=== PATIENT | female | born 1955 | race Caucasian/White ===

== ENCOUNTER 2019-08-27 15:58 | Observation (INO) ==
[2019-08-27 16:34] LABS: Basophils # (auto) 0.02 K/uL (0-0.2); Basophils % (auto) 0.4 %; Eosinophils # (auto) 0.12 K/uL (0-0.5); Eosinophils % (auto) 2.1 %; Hematocrit (blood only) 37.8 % (37-47); Hemoglobin 11.9 g/dL (12.0-16.0); Immature Granulocytes # (auto) 0.01 K/uL (0.00-0.02); Immature Granulocytes % (auto) 0.2 %; Lymphocytes # (auto) 1.08 K/uL (1.2-3.4); Lymphocytes % (auto) 18.9 %; Mean Corpuscular Hemoglobin 25.9 pg (25-34); Mean Corpuscular Hgb Conc 31.5 g/dL (32-36); Mean Corpuscular Volume 82.4 fL (80-100); Mean Platelet Volume 10.7 fL (7.4-10.4); Monocytes # (auto) 0.53 K/uL (0.11-0.59); Monocytes % (auto) 9.3 %; Neutrophils # (auto) 3.94 K/uL (1.4-6.5); Neutrophils % (auto) 69.1 %; Platelet Count 160 K/uL (130-400); RDW Coefficient of Variation 17.5 % (11.5-14.5); RDW Standard Deviation 52.1 fL (36.4-46.3); Red Blood Count 4.59 M/uL (4.2-5.4)
[2019-08-27 16:58] LABS: Alanine Aminotransferase 16 U/L (12-78); Albumin Level 3.6 gm/dl (3.4-5.0); Aspartate Aminotransferase 21 U/L (15-37); BUN Creatinine Ratio 22.3 (10-20); Bilirubin Direct 0.3 mg/dl (0-0.2); Blood Urea Nitrogen 25 mg/dl (7-18); Calcium 9.2 mg/dl (8.5-10.1); Carbon Dioxide 30 mmol/L (21-32); Chloride 101 mmol/L (98-107); Creatinine Clr Calc Pharmacy 66.7 ml/min; Est GFR (African American) 60.1; Est GFR (Non-African American) 51.9; Glucose 164 mg/dl (70-99); Lipase 65 U/L (73-393); Magnesium 2.2 mg/dl (1.8-2.4); Potassium 3.3 mmol/L (3.5-5.1); Sodium 138 mmol/L (136-145)
--- NOTE | 2019-08-27 17:06 | XRay Report ---
XR chest 1V portable HISTORY: 64 years-old Female Chest Pain acute atypical chest pain COMPARISON: None available TECHNIQUE: Portable AP view of the chest FINDINGS: Prior median sternotomy. Cardiac silhouette is enlarged. Coronary arterial stent is noted. Pulmonary vascular congestion without overt pulmonary edema. Calcified plaque of the thoracic aortic arch. No p neumothorax, large pleural effusion or focal airspace consolidation. Degenerative changes of the shou lders and spine. IMPRESSION: Cardiomegaly with pulmonary vascular congestion. The above report was generated using voice recognition software. It may contain grammatical, syntax o r spelling errors. Electronically signed by: Colin Neville M.D. 08/27/2019 5:04 PM
[2019-08-27 17:07] LABS: Albumin Globulin Ratio 0.9 (0.9-2); Alkaline Phosphatase 83 U/L (45-117); Bilirubin,Total 0.9 mg/dl (0.2-1); Globulin 4.2 gm/dl (2.5-4.0); Phosphorus 4.7 mg/dl (2.5-4.9); Total Protein 7.8 gm/dl (6.4-8.2); Troponin I < 0.015 ng/ml (0-0.045)
[2019-08-27] MEDS ORDERED: SODIUM CHLORIDE 0.9% 500 ML IV ONE (17:19)
[2019-08-27] MEDS ORDERED: POTASSIUM CHLORIDE 20 MEQ TABCR PO STA (17:20)
[2019-08-27] MEDS ORDERED: ALBUT/IPRATROP 3MG/0.5MG NEB 3 ML VIAL NEB STA (19:03)
--- NOTE | 2019-08-27 19:04 | Emergency Department Note ---
Entered by Alaina Ng acting as a scribe for Sae Beckett MD History of Present Illness General Chief complaint: Shortness of Breath/Dyspnea Stated complaint: DIZZINESS Time Seen by Provider: 08/27/19 16:14 Source: patient History of Present Illness Onset (ago): week(s) (1) Location: chest Pain Consistency: + other (worsening) Quality: + other (shortness of breath) Associated symptoms: + weakness and + other (lightheadedness) The patient is a 64 year old female who presents to the Emergency Room with complaints of worsening shortness of breath beginning one week ago. The patient states she took a bus trip to [place] this past week, and states the shortness of breath was worsened during the trip although it began prior to leaving. She states the bus stopped every 2-3 hours and she would get off each time. EMS reports lightheadedness beginning yesterday and swelling in her legs for the past two weeks. The patient reports an episode of lightheadedness and weakness occurring just prior to arrival. She reports a history of diabetes and notes her sugar was 99 during the episode. The patient states she took 25 units of insulin this morning with breakfast. She notes she then took 7 units with a candy bar about 2.5 hours before the episode. She denies knowing what her sugar level was before taking either of the insulin doses. The patient notes she has been drinking less than normal. The patient reports a history of a-fib. She states she is on Xarelto and Plavix. Home Medications Home Medications Medication Instructions Recorded Confirmed Type amlodipine 5 mg PO DAILY 08/27/19 08/27/19 History aspirin [Aspir-81] 81 mg PO DAILY 08/27/19 08/27/19 History calcium carbonate [Calcium 600] 600 mg PO DAILY 08/27/19 08/27/19 History cholecalciferol (vitamin D3) 2,000 unit PO DAILY 08/27/19 08/27/19 History duloxetine 60 mg PO DAILY 08/27/19 08/27/19 History furosemide 40 mg PO DAILY 08/27/19 08/27/19 History insulin aspart U-100 [Novolog 0 unit CONTINUOUS SUBCUTANEOUS 08/27/19 08/27/19 History U-100 Insulin aspart] INFUSION CONT irbesartan 300 mg PO DAILY 08/27/19 08/27/19 History isosorbide mononitrate 30 mg PO QAM 08/27/19 08/27/19 History metoprolol succinate 75 mg PO DAILY 08/27/19 08/27/19 History pantoprazole 40 mg PO DAILY 08/27/19 08/27/19 History potassium chloride [Klor-Con M10] 10 meq PO DAILY 08/27/19 08/27/19 History rivaroxaban [Xarelto] 20 mg PO DAILY 08/27/19 08/27/19 History rosuvastatin 40 mg PO DAILY 08/27/19 08/27/19 History vitamin [id number] acid 1,500 mcg PO DAILY 08/27/19 08/27/19 History Allergies Allergy/AdvReac Type Severity Reaction Status Date / Time Sulfa (Sulfonamide Allergy Unknown Unverified 08/27/19 18:25 Antibiotics) Past Med/Surg History Medical History A-fib Surgical History No pertinent past surgical history Family History Other No pertinent family history Social History Preferred Language: Persian Beliefs That Will Affect Care: None Current Living Situation: Alone Feels Safe at Home: Yes Safety Concerns: Feels Safe At This Time Smoking Status: Never smoker Hx Alcohol Use: No Hx Substance Use: No Review of Systems See HPI for pertinent positives & negatives. and A total of 10 systems reviewed and were otherwise negative Physical Exam Vital Signs Vital Signs - 24 hr 08/27/19 15:58 08/27/19 16:04 08/27/19 16:12 Temperature 36.4 C L Temperature Source Oral Sepsis Recent Fever Within 48 Hours No Sepsis New/Unexplained Change in Mental Status No Sepsis Action Taken by Nursing No Action Required Pulse Rate 72 70 72 Pulse Rate [Right Finger] Pulse Rate from SpO2 Sensor 70 Pulse Rhythm Regular Regular Respiratory Rate 21 20 21 Respiratory Effort / Characteristics SOB on Exertion Respiratory Depth Normal Respiratory Pattern Regular Blood Pressure 141/76 H 141/76 H Blood Pressure Mean 97 97 Pulse Oximetry 95 95 95 Oxygen Delivery Method Room Air Room Air Room Air 08/27/19 16:38 08/27/19 17:27 08/27/19 17:30 Temperature Temperature Source Sepsis Recent Fever Within 48 Hours Sepsis New/Unexplained Change in Mental Status Sepsis Action Taken by Nursing Pulse Rate 67 69 Pulse Rate [Right Finger] Pulse Rate from SpO2 Sensor 68 67 Pulse Rhythm Respiratory Rate 23 21 Respiratory Effort / Characteristics Respiratory Depth Respiratory Pattern Blood Pressure 127/74 136/80 Blood Pressure Mean 91 98 Pulse Oximetry 95 97 98 Oxygen Delivery Method Room Air Room Air Room Air 08/27/19 18:00 08/27/19 18:30 08/27/19 19:00 Temperature Temperature Source Sepsis Recent Fever Within 48 Hours Sepsis New/Unexplained Change in Mental Status Sepsis Action Taken by Nursing Pulse Rate 69 67 69 Pulse Rate [Right Finger] Pulse Rate from SpO2 Sensor 70 67 69 Pulse Rhythm Respiratory Rate 19 18 19 Respiratory Effort / Characteristics Respiratory Depth Respiratory Pattern Blood Pressure 139/88 151/108 H 153/98 H Blood Pressure Mean 105 122 116 Pulse Oximetry 98 97 97 Oxygen Delivery Method Room Air Room Air Room Air 08/27/19 19:19 Temperature Temperature Source Sepsis Recent Fever Within 48 Hours Sepsis New/Unexplained Change in Mental Status Sepsis Action Taken by Nursing Pulse Rate Pulse Rate [Right Finger] 70 Pulse Rate from SpO2 Sensor Pulse Rhythm Respiratory Rate 15 Respiratory Effort / Characteristics Non-Labored Spontaneous Respiratory Depth Respiratory Pattern Blood Pressure Blood Pressure Mean Pulse Oximetry 96 Oxygen Delivery Method Room Air GENERAL: Awake, alert, fatigued-appearing, in no distress. BMI: 39.9kg/m^2 HENT: Normocephalic, atraumatic. Oropharynx with dry mucous membranes and otherwise unremarkable. EYES: Normal conjunctiva. Sclera non-icteric. EOMI. No nystamgus. PEARRL. NECK: Supple. No nuchal rigidity. FROM. No JVD. RESPIRATORY: CTAB. CARDIAC: Regular rate, normal rhythm. Extremities warm and well perfused. Pulses equal. 3/6 systolic murmur. ABDOMEN: Soft, non-distended. No tenderness to palpation. No rebound or guarding. No masses. RECTAL: Deferred. MUSCULOSKELETAL: Chest examination reveals no tenderness. The back is symmetrical on inspection without obvious abnormality. There is no CVA tenderness to palpation. No joint edema. LOWER EXTREMITIES: Calves are equal size bilaterally and non-tender. 1+ bilateral lower extremity edema. No discoloration. NEURO: Normal sensorium. No sensory or motor deficits noted. SKIN: No rash or jaundice noted. Course 1635: Past medical records reviewed. The patient was evaluated in room B10. A complete history and physical exam was performed. 1830: Upon reevaluation, the patient was feeling better. The patient is going to try walking and will be discharged home if it goes well. 1850: Upon reevaluation, the patient's oxygen level decreased while on her ambulatory track. The patient will need to be further evaluated in the hospital. 1905: Upon reevaluation, I discussed findings and results with the patient. She verbalized agreement of the treatment plan. [facility] The patient will be evaluated for further management and care. Administered Medications Discontinued Medications Albuterol (Duoneb) 3 ml NEB NOW STA Stop: 08/27/19 19:04 Last Admin: 08/27/19 19:19 Dose: 3 ml Documented by: [id number] Sodium Chloride (Nss) 500 mls @ 999 mls/hr IV .Q31M ONE Stop: 08/27/19 17:49 Last Infusion: 08/27/19 18:19 Dose: 0 mls/hr Documented by: [id number] Admin: 08/27/19 17:26 Dose: 999 mls/hr Documented by: [id number] Furosemide 40 mg/ Syringe 4 mls @ 4 mls/min IV 2115 ONE Stop: 08/27/19 21:16 Last Admin: 08/27/19 21:32 Dose: 4 mls/min Documented by: [id number] Potassium Chloride (Klor-Con M20) 20 meq PO NOW STA Stop: 08/27/19 17:21 Last Admin: 08/27/19 17:24 Dose: 20 meq Documented by: [id number] Potassium Chloride (Klor-Con M20) 20 meq PO 2100 ONE Stop: 08/27/19 21:01 Last Admin: 08/27/19 21:32 Dose: 20 meq Documented by: [id number] Medical Decision Making Differential Diagnosis Differential Diagnosis includes but is not limited to dehydration, stroke, anemia, hypoglycemia, hyponatremia, hypernatremia, urinary tract infection, pneumonia, bronchitis, sepsis, gastroenteritis, additional abdominal pathology, metabolic abnormalities and infections. Medical Records Attestation: I reviewed the patient's medical records. Home Medications Current Medication List: was personally reviewed by me Laboratory Data Attestation: I reviewed the patient's lab results. Result diagrams: 08/27/19 16:21 08/27/19 16:21 Lab Results 08/27/19 08/27/19 08/27/19 Range/Units 16:21 16:21 16:21 WBC 5.70 (4.8-10.8) K/uL RBC 4.59 (4.2-5.4) M/uL Hgb 11.9 L (12.0-16.0) g/dL Hct 37.8 (37-47) % MCV 82.4 (80-100) fL MCH 25.9 (25-34) pg MCHC 31.5 L (32-36) g/dL RDW Std Deviation 52.1 H (36.4-46.3) fL RDW Coeff of Lazara 17.5 H (11.5-14.5) % Plt Count 160 (130-400) K/uL MPV 10.7 H (7.4-10.4) fL Immature Gran % (Auto) 0.2 % Neut % (Auto) 69.1 % Lymph % (Auto) 18.9 % [place] % (Auto) 9.3 % Eos % (Auto) 2.1 % Baso % (Auto) 0.4 % Immature Gran # (Auto) 0.01 (0.00-0.02) K/uL Neut # (Auto) 3.94 (1.4-6.5) K/uL Lymph # (Auto) 1.08 L (1.2-3.4) K/uL [place] # (Auto) 0.53 (0.11-0.59) K/uL Eos # (Auto) 0.12 (0-0.5) K/uL Baso # (Auto) 0.02 (0-0.2) K/uL D-Dimer 250 (0-500) ug/L FEU Sodium 138 (136-145) mmol/L Potassium 3.3 L (3.5-5.1) mmol/L Chloride 101 (98-107) mmol/L Carbon Dioxide 30 (21-32) mmol/L Anion Gap 7.0 (3-11) BUN 25 H (7-18) mg/dl Creatinine 1.12 (0.6-1.2) mg/dl Est Cr Clr Drug Dosing 66.7 ml/min Est GFR ( Amer) 60.1 Est GFR (Non-Af Amer) 51.9 BUN/Creatinine Ratio 22.3 H (10-20) Glucose 164 H (70-99) mg/dl Calcium 9.2 (8.5-10.1) mg/dl Phosphorus 4.7 (2.5-4.9) mg/dl Magnesium 2.2 (1.8-2.4) mg/dl Total Bilirubin 0.9 (0.2-1) mg/dl Direct Bilirubin 0.3 H (0-0.2) mg/dl AST 21 (15-37) U/L ALT 16 (12-78) U/L Alkaline Phosphatase 83 (45-117) U/L Troponin I < 0.015 (0-0.045) ng/ml Total Protein 7.8 (6.4-8.2) gm/dl Albumin 3.6 (3.4-5.0) gm/dl Globulin 4.2 H (2.5-4.0) gm/dl Albumin/Globulin Ratio 0.9 (0.9-2) Lipase 65 L (73-393) U/L TSH 2.800 (0.300-4.500) uIu/ml Imaging Data Radiologist's Impression: Radiology results as stated below per my review and the radiologist's interpretation: XR chest 1V portable HISTORY: 64 years-old Female Chest Pain acute atypical chest pain COMPARISON: None available TECHNIQUE: Portable AP view of the chest FINDINGS: Prior median sternotomy. Cardiac silhouette is enlarged. Coronary arterial stent is noted. Pulmonary vascular congestion without overt pulmonary edema. Calcified plaque of the thoracic aortic arch. No pneumothorax, large pleural effusion or focal airspace consolidation. Degenerative changes of the shoulders and spine. IMPRESSION: Cardiomegaly with pulmonary vascular congestion. The above report was generated using voice recognition software. It may contain grammatical, syntax or spelling errors. Electronically signed by: Colin Neville M.D. 08/27/2019 5:04 PM ECG Data Attestation: I personally reviewed and interpreted this ECG as follows: Indication: + SOB/dyspnea Rate (beats per minute): 69 Rhythm: + atrial flutter ECG Intervals/blocks: + Incomplete right bundle branch block ECG ST segments: + ST depression (no) ECG Findings: + PACs (no), + PVCs (no) and + Other (no ST elevation, QTC 505) Blood Pressure Blood Pressure Findings: Elevated blood pressure Blood Pressure Disposition: further management by hospitalist DISHA Lassiter The patient is a pleasant 64-year-old woman with a past medical history of a flutter on Xarelto, history of peripheral edema on Lasix, insulin-dependent diabetes who presents emergency department after having near syncopal episode with associated shortness of breath in the setting of having worsening shortness of breath over the past week while undertaking a trip from [place] to [place] with her sister per hpi. On arrival the patient is fatigued appearing but no acute distress, afebrile stable vital signs. Patient is neurologically intact. She has 1+ bilateral lower extremity edema. She has a 3 out of 6 systolic murmur that radiates to bilateral carotids. EKG demonstrates a flutter without overt acute ischemia. Chest x-ray with venous congestion without overt pulmonary edema likely related to patient's aflutter. WBC and platelets within normal limits. H/H 11.9/37.8 without prior values for comparison. Potassium 3.3 with repletion provided. Creatinine within normal limits however BUN/creatinine> 20 suggesting component of dehydration given the patient reports not drinking much during the last couple of days during her trip. Glucose is 164. Chemistry without acidosis. Troponin negative/undetectable. Patient was feeling improved after 500 cc of normal saline. The patient reports she is not checking her sugars during her trip but administering her insulin as usual. Certainly this patient's symptoms could be multifactorial with a component of transient hypoglycemia when she ate her candy and gave herself insulin without having lunch. Additionally there may be a slight component of dehydration. However upon ambulatory trial, the patient did become significantly short of breath and desaturated to the 80s. Thus, reasonable to admit the patient for further management given her comorbidities. Patient agreeable with admission. Case was discussed with Dr. Almonte, [facility] hospitalist, who will evaluate the patient for admission. Impression & Plan Near syncope, Dyspnea on exertion, Insulin dependent diabetes mellitus, History of hypertension Discharge Plan Visit Data *Final* Discharge Date/Time: 08/27/19 20:19 Chief Complaint: Shortness of Breath/Dyspnea Stated Complaint: DIZZINESS ED Provider: Sae Beckett Discharge Problem: Near syncope, Dyspnea on exertion, Insulin dependent diabetes mellitus, History of hypertension Patient Disposition: Admitted As Inpatient Discharge Instructions Interventions: ED Discharge Assessment Last Done: 08/27/19 20:19 The scribe's documentation has been prepared under my direction and personally reviewed by me in its entirety. I confirm that the note above accurately reflects all work, treatment, procedures, and medical decision making performed by me.
[2019-08-27] MEDS ORDERED: PHARMACY GLYCEMIC MGMT CONSULT STA (20:12)
[2019-08-27 20:31] LABS: D Dimer 250 ug/L FEU (0-500)
[2019-08-27] MEDS ORDERED: ACETAMINOPHEN 325 MG TAB PO PRN (20:45)
[2019-08-27] MEDS ORDERED: NITROGLYCERIN SL 0.4 MG/TAB TAB SL PRN (20:45)
[2019-08-27] MEDS ORDERED: ONDANSETRON INJ 2 MG/ML 2 ML VIAL IV PRN (20:45)
[2019-08-27] MEDS ORDERED: FUROSEMIDE 40 MG/4 ML VIAL IV STA (20:45)
[2019-08-27] MEDS ORDERED: PHARMACY GLYCEMIC MGMT CONSULT PRN (20:52)
[2019-08-27] MEDS ORDERED: GLUCAGON FOR INJ 1 MG VIAL IM PRN (21:00)
[2019-08-27] MEDS ORDERED: GLUCOSE 10 TABS/TUBE PO PRN (21:00)
[2019-08-27] MEDS ORDERED: POTASSIUM CHLORIDE 20 MEQ TABCR PO ONE (21:00)
[2019-08-27] MEDS ORDERED: DEXTROSE 50% 50 ML SYRINGE IV PRN (21:00)
[2019-08-27] MEDS ORDERED: GLUCOSE 40% GEL 15 GM TUBE PO PRN (21:00)
[2019-08-27] MEDS ORDERED: FUROSEMIDE 40 MG in SYRINGE 0 ML IV ONE (21:15)
[2019-08-27] MEDS ORDERED: INSULIN ASPART 100 UNITS/ML VIAL SC PRN (21:15)
[2019-08-27] MEDS ORDERED: INFLUENZA ADMINISTRATION CHARGE ONE (22:00)
[2019-08-27] MEDS ORDERED: INFLUENZA VIRUS QUAD VACCINE 0.5 ML SYR IM ONE (22:00)
--- NOTE | 2019-08-27 22:21 | Ultrasound Report ---
BILATERAL LOWER EXTREMITY VENOUS DOPPLER HISTORY: Acute pain and swelling of the lower extremities dvt? COMPARISON STUDY: None. FINDINGS: There is normal compressibility, flow, and augmentation within the bilateral lower extremit y deep venous systems. IMPRESSION: No DVT within the right or left lower extremity. Electronically signed by: Colin Neville M.D. 08/27/2019 10:20 PM
[2019-08-27 22:34] LABS: Appearance Urine Clear (Clear); Bacteria Urine Automated Negative (Negative); Bilirubin Urine Negative (Negative); Blood Urine Negative (Negative); Color Urine Yellow; Epithelial Cell Urine Auto 20-30 /lpf (0-5); Glucose Urine UA Negative (Negative); Ketones Urine Negative (Negative); Leukocyte Esterase Urine Trace (Negative); Nitrite Urine Negative (Negative); Protein Urine 1+ (Negative); RBC Urine Automated 0-4 /hpf (0-4); Specific Gravity Urine 1.016 (1.000-1.030); Urobilinogen Urine Negative (Negative); pH Urine 5.5 (4.5-7.5)
--- NOTE | 2019-08-27 22:43 | History and Physical Report ---
DATE OF ADMISSION: 08/27/2019 CHIEF COMPLAINT: Shortness of breath and dizziness. HISTORY OF PRESENT ILLNESS: A 64-year-old female with past medical history significant for diabetes, hypertension, hyperlipidemia, CAD status post stent and status post CABG in 2003, last stents were around 2003, history of sleep apnea, history of atrial flutter, on Xarelto, depression, who visits [place] from [place]. She is on vacation. Last week, she went to [place] for 4 days and she and her sister drove to [place] to go to [facility], but since last Thursday, she is getting more short of breath on exertion and dizziness, but last 2 days it got worse.She gets lower extremity swelling on and off, but last week the swelling got a little worse. There is also issue of not eating her lunch and just had a candy and had her insulin , question of any hypoglycemic episode. She is on insulin pump. In the ER, her initial workup was okay, but on exertion again her oxygen dropped into the 80s, so we are called for admission. Currently, resting comfortable and hemodynamically stable. The patient says whenever she is walking she gets short of breath and she takes rest, then she develops some chest discomfort, pressure-like feeling, moderate to severe in nature, no radiation, it lasts for about 10-15 minutes and it subsides. That got her worried and that is what brought her to the hospital. She also has heart murmur. Denies any fever, chills. Denies cough. Has some headaches, has some blurred visions on and off, has some ringing in the ears for last about 1 year, she is following with the doctors for that. Denies any sore throat. Appetite is good. No difficulty swallowing. During the episode, she had 1 episode of nausea. No vomiting, no abdominal pain. She was constipated the week before, but she is okay now. No melena or hematochezia. Normal bladder movements. She had burning micturition in the recent past, but that got resolved now. No hematuria. She is scratching in her back and she has some scratch lesions in the back. Before all this started, she used to ambulate fine. She lives alone. ALLERGIES: SULFA ANTIBIOTICS. PAST MEDICAL HISTORY: As mentioned above. PAST SURGICAL HISTORY: Status post CABG, status post cardiac stent, status post , tonsillectomy, adenoidectomy. She also has a stent in left lower extremity artery, possibly femoral. MEDICATIONS: The patient is on amlodipine 5 mg p.o. daily, aspirin 81 mg p.o. daily, calcium carbonate 600 mg p.o. daily, vitamin D 2000 units p.o. daily, duloxetine 60 mg p.o. daily, Lasix 40 mg daily, NovoLog insulin pump, irbesartan 75 mg p.o. daily, isosorbide mononitrate 30 mg p.o. a.m., metoprolol succinate 25 mg p.o. daily, Protonix 40 mg p.o. daily, potassium chloride 10 mEq p.o. daily, Xarelto 20 mg p.o. daily, atorvastatin 40 mg p.o. daily, vitamin B12 1500 mcg daily. FAMILY HISTORY: Significant for mother had diabetes and from congestive heart failure. Father had cancer and also heart disease. SOCIAL HISTORY: Denies any smoking, no alcohol. Lives alone. REVIEW OF SYSTEMS: As per HPI. Rest of the review of systems is negative. PHYSICAL EXAMINATION: GENERAL: The patient is obese, not in acute distress. VITAL SIGNS: Temperature 36.4, pulse 70, respiratory rate 15, blood pressure 153/98, oxygen 96% on room air. HEENT: No pallor, no icterus. Pupils equal, round, reactive to light. NECK: No JVD, no neck masses, no carotid bruits. CARDIOVASCULAR: S1, S2 heard, regular rhythm and ejection systolic murmur heard best in the aortic area. RESPIRATORY SYSTEM: Clear to auscultation. Normal AP diameter. No accessory muscle use. Clear to auscultation bilaterally. No wheezing, no crackles. ABDOMEN: Soft, bowel sounds present, nontender. No distention. CENTRAL NERVOUS SYSTEM: Alert and awake and oriented. Nonfocal. EXTREMITIES: Bilateral lower extremity +2 edema present. SKIN: Scratches, lesions seen on the back. LABORATORY DATA: WBC 5.7, hemoglobin 11.9, hematocrit 37.8, platelets 160. Sodium 138, potassium 3.3, chloride 101, bicarbonate 30, BUN 25, creatinine 1.1, serum glucose 164, calcium 9.2, phosphorus 4.7, magnesium 2.2, total bilirubin 0.9, direct bilirubin 0.3, AST 21, ALT 16, alkaline phosphatase 83, troponin I less than 0.015. Lipase 65. TSH 2.8. IMAGING DATA: Chest x-ray, cardiomegaly with pulmonary vascular congestion. EKG: Atrial flutter with rate of 69, incomplete right bundle branch block, no acute ST changes seen. ASSESSMENT AND PLAN: This is a 64-year-old female who presents with shortness of breath and dizziness. 1. Shortness of breath and dizziness going for about a week and worse in last 2 days, also has lower extremity edema since last 2 weeks. Takes Lasix 40 mg daily at home. She says she got admitted for atrial flutter in the past, but never got admitted for congestive heart failure in the past. Her symptoms could be mostly from the congestive heart failure, but since she is travelling about last 2 weeks, we will also make sure there is no pulmonary embolism. The patient is already on Xarelto for atrial flutter. We will check lower extremity Doppler and also D-dimer. If the D-dimer is elevated, we will do a CT of the chest. We will give a dose of IV Lasix 40 mg. Follow serial cardiac enzymes, echocardiogram. Monitor on the tele floor. While resting she is comfortable. She gets short of breath on exertion. 2. Some chest discomfort after exertion , she gets short of breath and when she is taking rest, she noticed some chest discomfort lasting 10-15 minutes the last few days, so we will follow serial enzymes, echocardiogram, and consult cardiology for further recommendations. We will keep n.p.o. after midnight until seen by cardiology. 3. History of coronary artery disease status post coronary artery bypass graft and stents Continue home aspirin, Toprol-XL, Imdur, pravastatin. 4. History of diabetes, on insulin pump. The patient wants to continue insulin pump.. We will consult pharmacy for managing her insulin pump. 5. History of hyperlipidemia. Continue statin. 6. History of hypertension. Continue Imdur. irbesartan, amlodipine, Toprol-XL. We will monitor the blood pressure. 7. History of atrial flutter, rate controlled with Toprol-XL and on Xarelto. 8. Sleep apnea, on CPAP. 9. Deep venous thrombosis prophylaxis, on Xarelto. 10. Disposition: Observe in tele floor. Expect to discharge home and follow with her family doctor. Level 1 full code. MTDD
[2019-08-28 03:34] LABS: Basophils # (auto) 0.01 K/uL (0-0.2); Basophils % (auto) 0.2 %; Eosinophils # (auto) 0.12 K/uL (0-0.5); Eosinophils % (auto) 2.1 %; Hematocrit (blood only) 37.3 % (37-47); Hemoglobin 11.6 g/dL (12.0-16.0); Immature Granulocytes # (auto) 0.01 K/uL (0.00-0.02); Immature Granulocytes % (auto) 0.2 %; Lymphocytes % (auto) 22.4 %; Mean Corpuscular Hemoglobin 25.3 pg (25-34); Mean Corpuscular Hgb Conc 31.1 g/dL (32-36); Mean Corpuscular Volume 81.4 fL (80-100); Monocytes # (auto) 0.63 K/uL (0.11-0.59); Monocytes % (auto) 10.8 %; Neutrophils # (auto) 3.74 K/uL (1.4-6.5); Neutrophils % (auto) 64.3 %; Platelet Count 140 K/uL (130-400); RDW Coefficient of Variation 17.6 % (11.5-14.5); RDW Standard Deviation 52.5 fL (36.4-46.3); Red Blood Count 4.58 M/uL (4.2-5.4); White Blood Count 5.81 K/uL (4.8-10.8)
[2019-08-28 04:01] LABS: BUN Creatinine Ratio 23.3 (10-20); Creatinine Clr Calc Pharmacy 76.8 ml/min; Est GFR (African American) 71.5; Est GFR (Non-African American) 61.7; Magnesium 2.1 mg/dl (1.8-2.4); Potassium 3.4 mmol/L (3.5-5.1)
[2019-08-28] MEDS ORDERED: POTASSIUM CHLORIDE 20 MEQ TABCR PO STA (06:29)
[2019-08-28] MEDS: NovoLOG INSULIN PUMP SCH ×4 (07:43→20:53)
[2019-08-28] MEDS ORDERED: FUROSEMIDE 40 MG/4 ML VIAL IV STA (08:39)
--- NOTE | 2019-08-28 08:42 | Cardiology Consultation ---
Date of Consultation August 28, 2019 Assessment & Plan (1) Acute decompensated heart failure: (2) Aortic stenosis: (3) Angina of effort: (4) CAD in [place] artery: (5) S/P CABG (coronary artery bypass graft): 64-year-old female admitted with progressive dyspnea on exertion with associated chest tightness. Findings consistent with acute decompensated heart failure. Ejection fraction unknown at this time. I suspect aortic stenosis contributing to overall symptomatology although severity unknown. No outpatient records available for review at this time. Patient has diuresed nearly 2.6 L overnight and is markedly improved clinically. Recommend additional 40 mg IV Lasix x1 now. Replace potassium as indicated. Cardiac enzymes are negative. Atrial flutter on telemetry which reportedly is chronic per patient. She is anticoagulated appropriately with Xarelto. I will review resting echocardiogram. If results suggest severe aortic stenosis then further evaluation in preparation for aortic valve replacement including repeat cardiac catheterization would be indicated. If the aortic stenosis is not severe, further evaluation with stress testing recommended when volume status has been optimized. This also, can be performed via her outpatient license clerk in [place] after discharge. Patient prefers to have studies/evaluation performed near her home in [place] via her outpatient license clerk. History of Present Illness Reason for Consultation: CHF Requesting Physician: Dr. Almonte Attending Physician: Cresencio Javed MD History of Present Illness 64-year-old female presented to the emergency department with shortness of breath and chest discomfort. Patient is on vacation from [place]. Here visiting [facility]. Over the past 2 weeks patient notes progressive dyspnea on exertion with associated chest pressure as well as fatigue. Reports weight gain and progressive lower extremity edema. Due to worsening symptoms she was brought to the ER by EMS. Treated with intravenous furosemide with subsequent 2.6 liter diuresis. Feeling much better this morning. No recurrent chest discomfort or shortness of breath. Denies orthopnea or PND. Lower extremity edema improving. Telemetry demonstrates atrial flutter. Patient states that she is "always in A. fib".. Chronically anticoagulated. Carries complex cardiovascular history of multiple stents as well as coronary artery bypass grafting in 2003. Follows with a license clerk in [place]. States that she has a valve issue that may need replacement at some point in the near future. Long-standing type I diabetic. Utilizing an insulin pump for the past 24 years. Currently, patient resting comfortably. Requesting discharge. States her sister is anxious about returning home. Offers no other concerns/complaints at this time. Allergies Allergy/AdvReac Type Severity Reaction Status Date / Time Sulfa (Sulfonamide Allergy Unknown Unverified 08/27/19 18:25 Antibiotics) Home Medications Home Medications Medication Instructions Recorded Confirmed Type amlodipine 5 mg PO DAILY 08/27/19 08/27/19 History aspirin [Aspir-81] 81 mg PO DAILY 08/27/19 08/27/19 History calcium carbonate [Calcium 600] 600 mg PO DAILY 08/27/19 08/27/19 History cholecalciferol (vitamin D3) 2,000 unit PO DAILY 08/27/19 08/27/19 History duloxetine 60 mg PO DAILY 08/27/19 08/27/19 History furosemide 40 mg PO DAILY 08/27/19 08/27/19 History insulin aspart U-100 [Novolog 0 unit CONTINUOUS SUBCUTANEOUS 08/27/19 08/27/19 History U-100 Insulin aspart] INFUSION CONT irbesartan 300 mg PO DAILY 08/27/19 08/27/19 History isosorbide mononitrate 30 mg PO QAM 08/27/19 08/27/19 History metoprolol succinate 75 mg PO DAILY 08/27/19 08/27/19 History pantoprazole 40 mg PO DAILY 08/27/19 08/27/19 History potassium chloride [Klor-Con M10] 10 meq PO DAILY 08/27/19 08/27/19 History rivaroxaban [Xarelto] 20 mg PO DAILY 08/27/19 08/27/19 History rosuvastatin 40 mg PO DAILY 08/27/19 08/27/19 History vitamin I55-ncovp acid 1,500 mcg PO DAILY 08/27/19 08/27/19 History Patient History Medical History A-fib Aortic stenosis CAD (coronary artery disease), [place] coronary artery Diabetes mellitus type 1 with complications Dyslipidemia, goal LDL below 70 Surgical History No pertinent past surgical history S/P CABG (coronary artery bypass graft) Family History Other No pertinent family history Social History Preferred Language: Haitian Beliefs That Will Affect Care: None Current Living Situation: Alone Feels Safe at Home: Yes Safety Concerns: Feels Safe At This Time Smoking Status: Never smoker Hx Alcohol Use: No Hx Substance Use: No Review of Systems Review of Systems: All systems reviewed & are unremarkable except as noted in HPI & below Physical Exam Physical Exam: General: NAD, AAO x3, well nourished. Overweight. HEENT: Normocephalic. Atraumatic. Conjunctiva pink, no scleral icterus. Neck: No carotid bruits, the carotid upstrokes are brisk. No JVD. No HJR Heart: Regular normal S-1 and diminished S2. 3/6 low pitched mid to late peaking systolic ejection murmur heard throughout the precordium, however, best at the right second intercostal space. PMI is not displaced. No RV heave. Lungs: Clear bilateral without rales , rhonchi, or wheeze. Abdomen: Obese. Normal bowel sounds. Soft. Nontender. No masses or organomegaly. No abdominal bruits. Extremities: 1-2+ bilateral lower extremity pretibial edema with stasis changes per pulses: radial=2/4, Dorsalis pedis =2/4. Neuro: Cranial nerves grossly intact. No focal motor deficit. Results & Data Vital Signs (Past 12 Hours) Vital Signs Temp Pulse Pulse Resp BP Pulse Ox 08/28/19 07:06 36.6 C 76 20 98/63 L 98 08/28/19 04:23 36.4 C L 74 20 108/71 93 08/28/19 03:27 75 16 95 08/27/19 23:45 36.3 C L 75 22 145/84 H 98 08/27/19 22:51 74 17 96 Laboratory Results Laboratory Results - last 24 hr 08/27/19 08/27/19 08/27/19 16:21 16:21 16:21 WBC 5.70 RBC 4.59 Hgb 11.9 L Hct 37.8 MCV 82.4 MCH 25.9 MCHC 31.5 L RDW Std Deviation 52.1 H RDW Coeff of Laz[place] 17.5 H Plt Count 160 MPV 10.7 H Immature Gran % (Auto) 0.2 Neut % (Auto) 69.1 Lymph % (Auto) 18.9 [place] % (Auto) 9.3 Eos % (Auto) 2.1 Baso % (Auto) 0.4 Immature Gran # (Auto) 0.01 Neut # (Auto) 3.94 Lymph # (Auto) 1.08 L [place] # (Auto) 0.53 Eos # (Auto) 0.12 Baso # (Auto) 0.02 D-Dimer 250 Sodium 138 Potassium 3.3 L Chloride 101 Carbon Dioxide 30 Anion Gap 7.0 BUN 25 H Creatinine 1.12 Est Cr Clr Drug Dosing 66.7 Est GFR ( Amer) 60.1 Est GFR (Non-Af Amer) 51.9 BUN/Creatinine Ratio 22.3 H Glucose 164 H POC Glucose Estimat Average Glucose Hemoglobin A1c Calcium 9.2 Phosphorus 4.7 Magnesium 2.2 Total Bilirubin 0.9 Direct Bilirubin 0.3 H AST 21 ALT 16 Alkaline Phosphatase 83 Troponin I < 0.015 Total Protein 7.8 Albumin 3.6 Globulin 4.2 H Albumin/Globulin Ratio 0.9 Lipase 65 L TSH 2.800 Urine Color Urine Appearance Urine pH Ur Specific [place] Urine Protein Urine Glucose (UA) Urine Ketones Urine Blood Urine Nitrite Urine Bilirubin Urine Urobilinogen Ur Leukocyte Esterase Urine WBC (Auto) Urine RBC (Auto) U Hyaline Cast (Auto) U Epithel Cells (Auto) Urine Bacteria (Auto) Hepatitis C Ab Screen 08/27/19 08/27/19 08/27/19 21:14 22:10 22:17 WBC RBC Hgb Hct MCV MCH MCHC RDW Std Deviation RDW Coeff of [place]az[place] Plt Count MPV Immature Gran % (Auto) Neut % (Auto) Lymph % (Auto) [place] % (Auto) Eos % (Auto) Baso % (Auto) Immature Gran # (Auto) Neut # (Auto) Lymph # (Auto) [place] # (Auto) Eos # (Auto) Baso # (Auto) D-Dimer Sodium Potassium Chloride Carbon Dioxide Anion Gap BUN Creatinine Est Cr Clr Drug Dosing Est GFR ( Amer) Est GFR (Non-Af Amer) BUN/Creatinine Ratio Glucose POC Glucose 145 H Estimat Average Glucose Hemoglobin A1c Calcium Phosphorus Magnesium Total Bilirubin Direct Bilirubin AST ALT Alkaline Phosphatase Troponin I < 0.015 Total Protein Albumin Globulin Albumin/Globulin Ratio Lipase TSH Urine Color Yellow Urine Appearance Clear Urine pH 5.5 Ur Specific [place] 1.016 Urine Protein 1+ H Urine Glucose (UA) Negative Urine Ketones Negative Urine Blood Negative Urine Nitrite Negative Urine Bilirubin Negative Urine Urobilinogen Negative Ur Leukocyte Esterase Trace H Urine WBC (Auto) 1-5 Urine RBC (Auto) 0-4 U Hyaline Cast (Auto) 1-5 U Epithel Cells (Auto) 20-30 H Urine Bacteria (Auto) Negative Hepatitis C Ab Screen 08/28/19 08/28/19 08/28/19 00:41 03:18 03:18 WBC 5.81 RBC 4.58 Hgb 11.6 L Hct 37.3 MCV 81.4 MCH 25.3 MCHC 31.1 L RDW Std Deviation 52.5 H RDW Coeff of Lazara 17.6 H Plt Count 140 MPV 10.0 Immature Gran % (Auto) 0.2 Neut % (Auto) 64.3 Lymph % (Auto) 22.4 [place] % (Auto) 10.8 Eos % (Auto) 2.1 Baso % (Auto) 0.2 Immature Gran # (Auto) 0.01 Neut # (Auto) 3.74 Lymph # (Auto) 1.30 [place] # (Auto) 0.63 H Eos # (Auto) 0.12 Baso # (Auto) 0.01 D-Dimer Sodium Potassium Chloride Carbon Dioxide Anion Gap BUN Creatinine Est Cr Clr Drug Dosing Est GFR ( Amer) Est GFR (Non-Af Amer) BUN/Creatinine Ratio Glucose POC Glucose 89 Estimat Average Glucose Hemoglobin A1c Calcium Phosphorus Magnesium Total Bilirubin Direct Bilirubin AST ALT Alkaline Phosphatase Troponin I < 0.015 Total Protein Albumin Globulin Albumin/Globulin Ratio Lipase TSH Urine Color Urine Appearance Urine pH Ur Specific [place] Urine Protein Urine Glucose (UA) Urine Ketones Urine Blood Urine Nitrite Urine Bilirubin Urine Urobilinogen Ur Leukocyte Esterase Urine WBC (Auto) Urine RBC (Auto) U Hyaline Cast (Auto) U Epithel Cells (Auto) Urine Bacteria (Auto) Hepatitis C Ab Screen 08/28/19 08/28/19 08/28/19 03:18 03:18 03:18 WBC RBC Hgb Hct MCV MCH MCHC RDW Std Deviation RDW Coeff of Lazara Plt Count MPV Immature Gran % (Auto) Neut % (Auto) Lymph % (Auto) [place] % (Auto) Eos % (Auto) Baso % (Auto) Immature Gran # (Auto) Neut # (Auto) Lymph # (Auto) [place] # (Auto) Eos # (Auto) Baso # (Auto) D-Dimer Sodium 141 Potassium 3.4 L Chloride 105 Carbon Dioxide 31 Anion Gap 5.0 BUN 23 H Creatinine 0.97 Est Cr Clr Drug Dosing 76.8 Est GFR ( Amer) 71.5 Est GFR (Non-Af Amer) 61.7 BUN/Creatinine Ratio 23.3 H Glucose 50 L* POC Glucose Estimat Average Glucose Pending Hemoglobin A1c Pending Calcium 9.0 Phosphorus Magnesium 2.1 Total Bilirubin Direct Bilirubin AST ALT Alkaline Phosphatase Troponin I Total Protein Albumin Globulin Albumin/Globulin Ratio Lipase TSH Urine Color Urine Appearance Urine pH Ur Specific [place] Urine Protein Urine Glucose (UA) Urine Ketones Urine Blood Urine Nitrite Urine Bilirubin Urine Urobilinogen Ur Leukocyte Esterase Urine WBC (Auto) Urine RBC (Auto) U Hyaline Cast (Auto) U Epithel Cells (Auto) Urine Bacteria (Auto) Hepatitis C Ab Screen Neg 08/28/19 08/28/19 04:32 07:23 WBC RBC Hgb Hct MCV MCH MCHC RDW Std Deviation RDW Coeff of Lazara Plt Count MPV Immature Gran % (Auto) Neut % (Auto) Lymph % (Auto) [place] % (Auto) Eos % (Auto) Baso % (Auto) Immature Gran # (Auto) Neut # (Auto) Lymph # (Auto) [place] # (Auto) Eos # (Auto) Baso # (Auto) D-Dimer Sodium Potassium Chloride Carbon Dioxide Anion Gap BUN Creatinine Est Cr Clr Drug Dosing Est GFR ( Amer) Est GFR (Non-Af Amer) BUN/Creatinine Ratio Glucose POC Glucose 147 H 131 H Estimat Average Glucose Hemoglobin A1c Calcium Phosphorus Magnesium Total Bilirubin Direct Bilirubin AST ALT Alkaline Phosphatase Troponin I Total Protein Albumin Globulin Albumin/Globulin Ratio Lipase TSH Urine Color Urine Appearance Urine pH Ur Specific [place] Urine Protein Urine Glucose (UA) Urine Ketones Urine Blood Urine Nitrite Urine Bilirubin Urine Urobilinogen Ur Leukocyte Esterase Urine WBC (Auto) Urine RBC (Auto) U Hyaline Cast (Auto) U Epithel Cells (Auto) Urine Bacteria (Auto) Hepatitis C Ab Screen
[2019-08-28] MEDS: DULOXETINE HCL 60 MG CAP PO SCH (08:52)
[2019-08-28] MEDS: AMLODIPINE BESYLATE 5 MG TAB PO SCH (08:52)
[2019-08-28] MEDS ORDERED: FUROSEMIDE 40 MG in SYRINGE 0 ML IV STA ×2 (08:52→15:11)
[2019-08-28] MEDS: ASPIRIN 81 MG ECTAB PO SCH (08:53)
[2019-08-28] MEDS: RIVAROXABAN 20 MG TAB PO SCH (08:53)
[2019-08-28] MEDS: ISOSORBIDE MONO EXTENDED REL 30 MG TABCR PO SCH (08:53)
[2019-08-28] MEDS: CHOLECALCIFEROL 1,000 UNITS TAB PO SCH (08:53)
[2019-08-28] MEDS: CALCIUM 600MG + VIT D 400 IU TAB PO SCH (08:53)
[2019-08-28] MEDS: IRBESARTAN 150 MG TAB PO SCH (08:53)
[2019-08-28] MEDS: PANTOprazole 40 MG TAB PO SCH (08:54)
[2019-08-28] MEDS: CYANOCOBALAMIN 500 MCG TABLET (VITAMIN B-12) PO SCH (08:54)
[2019-08-28] MEDS: ROSUVASTATIN CALCIUM 20 MG TAB PO SCH (08:54)
[2019-08-28] MEDS: METOPROLOL SUCC 25MG EXT REL TAB PO SCH (08:54)
[2019-08-28] MEDS ORDERED: POTASSIUM CHLORIDE 10 MEQ TABCR PO SCH (09:00)
[2019-08-28] MEDS ORDERED: FUROSEMIDE 40 MG TAB PO SCH (09:00)
--- NOTE | 2019-08-28 10:45 | Pharmacy Report ---
Glycemic Control Consultation - Date of Service August 28, 2019 - Scope Scope: Glycemic Pharmacist consulted by Dr Almonte on 08/27/19 for glycemic control and to write orders per [facility] inpatient glycemic control protocol - Objective Weight: 113.8 kg Accuchecks BSG (last 24hrs): 08/27/19 08/27/19 08/28/19 16:21 21:14 00:41 Glucose 164 H POC Glucose 145 H 89 08/28/19 08/28/19 08/28/19 03:18 04:32 07:23 Glucose 50 L* POC Glucose 147 H 131 H Laboratory Data (last 24hrs): 08/27/19 08/28/19 16:21 03:18 Potassium 3.3 L 3.4 L Carbon Dioxide 30 31 Anion Gap 7.0 5.0 Creatinine 1.12 0.97 Est Cr Clr Drug Dosing 66.7 76.8 - Recent Pertinent Medications Outpatient Anti-diabetic Regimen: * Novolog pump * A1c = "7.9% back in December" per Ms. Way - Assessment & Plan Assessment & Plan: ASSESSMENT: * Ms. Way is a 64yo F p/w worsening dyspnea, edema, dizziness. PMHx consistent with A fib, HTN, ACS s/p CABG 2003. Per my discussion with her, she is a type I diabetic and her most recent A1C is 7.9%. She was diagnosed in her early 20s. She is managed by an electro mechanical solar technician in [place]. She is now ordered a diet. Fluid status is improving. She manages her type I diabetes with a medtronic novolog pump. Settings: [id number] 1.6u/hr, [id number] 2.3u/hr. CF: 10. She has a carb ratio but does not count carbs or use her CR. PLAN FOR INPATIENT GLYCEMIC CONTROL: * She did have a low this morning @ ~0300 2/2 NPO status. She appropriately suspended her pump and treated it. Subsequent BSGs look good. We will continue to allow her to use the pump as long as BSGs remain well controlled. * Please note that the plan above was derived based on current level of insulin resistance and hospital stress. These recommendations are appropriate for inpatient admission only. Plan of care upon discharge will need to be reassessed to avoid potential outpatient hypo/hyperglycemia. Thank you.
[2019-08-28] MEDS ORDERED: FUROSEMIDE 40 MG/4 ML VIAL IV ONE (14:55)
[2019-08-28] MEDS ORDERED: POTASSIUM CHLORIDE 20 MEQ TABCR PO ONE (14:55)
--- NOTE | 2019-08-28 19:07 | Hospitalist Progress Note ---
Date of Service August 28, 2019 Assessment & Plan (1) Acute decompensated heart failure: Exam admission chest x-ray consistent with decompensated CHF. Echocardiogram showed left ventricular hypertrophy, preserved left ventricular systolic function, aortic stenosis as discussed below. Acute on chronic left ventricular diastolic heart failure with associated aortic stenosis. Improved with IV furosemide last evening. Order another dose of IV furosemide this afternoon. (2) CAD in [place] artery: Experiencing some chest pressure and dyspnea on exertion. Decompensated CHF as noted above. Acute PR ruled out. May or may not have unstable angina. Worsening could be contributing factor. Increase activity as CHF improves. May need stress testing or follow-up catheterization. Continue aspirin, metoprolol, amlodipine, nitrates, statin. (3) Aortic stenosis: Echocardiogram demonstrated moderate to severe aortic stenosis, severe LVH, preserved LVEF. Worsening dyspnea on exertion may be due to CHF, myocardial ischemia, and/or worsening aortic stenosis. Has had episodes of near-syncope which may or may not be related. Will need close follow-up with her elementary instructional coach in [place]. (4) Near syncope: Episodes of near syncope. Chronic AF with controlled rate. Aortic stenosis as noted above. (5) Atrial flutter: Patient indicates history of paroxysmal atrial fibrillation. Rhythm at this time is atrial flutter with controlled rate. Continue metoprolol and rivaroxaban. (6) Hypertension: Continue metoprolol, amlodipine, nitrates (7) Diabetes mellitus type 2 with complications: Managed with insulin pump. Pharmacy consulted to assist with glycemic management. (8) DVT prophylaxis: On rivaroxaban for atrial fibrillation / flutter. (9) Discharge planning issues: Anticipated return to her home in [place]. Follow-up with her providers there [facility]. Primary Care Provider: Jhoan Saumel MD [address] [place] [address] [place] [id number] Subjective Recheck for multiple problems. Patient seen in their room around 1120. Good diuresis after receiving IV furosemide last evening. Less short of breath. No further chest pain. Review of Systems: Constitutional- no fever. Cardiac- as noted above. Pulmonary- no cough or SOB. GI- no nausea, vomiting, diarrhea, melena, hematochezia. - no urinary symptoms. Otherwise, as noted above. Physical Exam Constitutional: no acute distress Respiratory: no respiratory distress Auscultation: lungs clear to auscultation bilaterally Cardiovascular: Rate/Rhythm: regular rate and regular rhythm Heart Sounds: + murmur (IV/ sys murmur at base); no gallop and no cardiac rub Vessels: no JVD Extremities: + edema (1+ pretibial); no calf tenderness Gastrointestinal (Abdomen): normal bowel sounds, soft, nontender, no hepatosplenomegaly Skin: no rashes, warm and dry Psychiatric: Orientation: alert and oriented x 3 Results & Data Vital Signs (Past 12 Hours) Vital Signs Temp Pulse Resp BP BP Pulse Ox 08/28/19 15:14 37.0 C 70 18 119/71 95 08/28/19 11:39 36.7 C 81 20 119/71 95 08/28/19 08:59 88 142/91 H 08/28/19 07:06 36.6 C 76 20 98/63 L 98 Laboratory Results 08/28/19 03:18 08/28/19 03:18
[2019-08-28] MEDS: POTASSIUM CHLORIDE 20 MEQ TABCR PO SCH (20:56)
[2019-08-29 06:13] LABS: Estimated Average Glucose 160 mg/dl; Hemoglobin A1C 7.2 % (4.5-5.6)
[2019-08-29 06:46] LABS: BUN Creatinine Ratio 20.6 (10-20); Calcium 9.5 mg/dl (8.5-10.1); Creatinine Clr Calc Pharmacy 67.6 ml/min; Est GFR (African American) 62.1; Est GFR (Non-African American) 53.6; Potassium 4.1 mmol/L (3.5-5.1)
--- NOTE | 2019-08-29 07:28 | XRay Report ---
XR chest 1V portable CLINICAL HISTORY: 64 years-old Female presenting with CHF. TECHNIQUE: Portable upright AP view of the chest was obtained. COMPARISON: 08/27/2019. FINDINGS: Median sternotomy wires. Atherosclerosis of the aortic arch. Coronary artery calcification or stents noted. Cardiac silhouette moderately enlarged as on prior. Diffuse heterogeneity of lung parenchyma w ith bronchial wall cuffing suggested in the right lung with vague added right perihilar density. This appears new from prior. Prominence of the bibi bilaterally may relate to vasculature. Pulmonary basi lar prominence is slightly increased from prior. No other focal opacity. No pleural effusion or pneum othorax. Osseous structures normal. Upper abdomen normal. IMPRESSION: 1. Cardiomegaly with slight interval worsening of mild volume overload and congestive change. No fra nk pulmonary edema. Electronically signed by: Mauri Sims M.D. 08/29/2019 7:27 AM
[2019-08-29] MEDS: IRBESARTAN 150 MG TAB PO SCH (08:24)
[2019-08-29] MEDS: POTASSIUM CHLORIDE 20 MEQ TABCR PO SCH (08:24)
[2019-08-29] MEDS: ASPIRIN 81 MG ECTAB PO SCH (08:24)
[2019-08-29] MEDS: ROSUVASTATIN CALCIUM 20 MG TAB PO SCH (08:25)
[2019-08-29] MEDS: RIVAROXABAN 20 MG TAB PO SCH (08:26)
[2019-08-29] MEDS: CALCIUM 600MG + VIT D 400 IU TAB PO SCH (08:26)
[2019-08-29] MEDS: AMLODIPINE BESYLATE 5 MG TAB PO SCH (08:26)
[2019-08-29] MEDS: CHOLECALCIFEROL 1,000 UNITS TAB PO SCH (08:26)
[2019-08-29] MEDS: PANTOprazole 40 MG TAB PO SCH (08:27)
[2019-08-29] MEDS: ISOSORBIDE MONO EXTENDED REL 30 MG TABCR PO SCH (08:27)
[2019-08-29] MEDS: CYANOCOBALAMIN 500 MCG TABLET (VITAMIN B-12) PO SCH (08:27)
[2019-08-29] MEDS: METOPROLOL SUCC 25MG EXT REL TAB PO SCH (08:27)
[2019-08-29] MEDS: DULOXETINE HCL 60 MG CAP PO SCH (08:27)
[2019-08-29] MEDS: NovoLOG INSULIN PUMP SCH ×3 (08:28→16:53)
[2019-08-29] MEDS ORDERED: FUROSEMIDE 40 MG TAB PO SCH (09:00)
--- NOTE | 2019-08-29 10:50 | Cardiology Progress Note ---
Date of Service August 29, 2019 Assessment & Plan (1) Acute decompensated heart failure: (2) Aortic stenosis: (3) Angina of effort: (4) CAD in [place] artery: (5) Atrial flutter: (6) S/P CABG (coronary artery bypass graft): Discontinue IV diuretic therapy. Patient will resume Lasix 40 mg daily. Results of resting 2D transthoracic echocardiogram demonstrating moderate to borderline severe aortic stenosis discussed at length. Patient instructed to follow-up closely with her outpatient brake adjuster within the next 7 to 10 days. Monitor daily weights as an outpatient. Instructed to take an additional 40 mg of Lasix if weight increases more than 2 pounds in a 48-hour period, or 5 pounds in 1 week. Sodium restriction advised. In regard to treatment of atrial flutter, currently rate controlled. Patient reports possible chronic atrial flutter, however, external direct-current cardioversion could be considered. She will address this issue with her outpatient brake adjuster as well. Continue other outpatient cardiovascular medications as previously ordered. Patient provided with my contact information and I invited her to call me with any concerns/questions. She will forward my information to her brake adjuster if he wishes to discuss her hospitalization further. Subjective Patient seen and examined at the bedside. Weight is down 6 pounds since admission. Fluid balance -2.7 L over the past 24 hours. Feeling much better from a cardiovascular perspective. Edema markedly improved. Denies orthopnea or PND. Anxious for discharge. Requesting copies of medical records and imaging studies. Renal function remains stable. Denies chest discomfort or palpitations. Remains in atrial flutter with controlled ventricular response. Review of Systems Review of Systems: All systems reviewed & are unremarkable except as noted in HPI & below Physical Exam Physical Exam: General: NAD, AAO x3, well nourished. Overweight. HEENT: Normocephalic. Atraumatic. Conjunctiva pink, no scleral icterus. Neck: No carotid bruits, the carotid upstrokes are brisk. No JVD. No HJR Heart: Regular normal S-1 and diminished S2. 3/6 low pitched mid to late peaking systolic ejection murmur heard throughout the precordium, however, best at the right second intercostal space. PMI is not displaced. No RV heave. Lungs: Clear bilateral without rales , rhonchi, or wheeze. Abdomen: Obese. Normal bowel sounds. Soft. Nontender. No masses or organomegaly. No abdominal bruits. Extremities: Mild, 1+ bilateral lower extremity pretibial edema with stasis changes. Pulses: radial=2/4, Dorsalis pedis =2/4. Neuro: Cranial nerves grossly intact. No focal motor deficit. Results & Data Vital Signs (Past 12 Hours) Vital Signs Temp Pulse Pulse Pulse Pulse Resp Resp 08/29/19 09:00 104 H 104 H 83 20 08/29/19 07:15 36.4 C L 74 19 08/29/19 04:03 36.4 C L 69 17 08/28/19 23:09 36.5 C 73 19 Resp Resp BP BP Pulse Ox Pulse Ox Pulse Ox 08/29/19 09:00 16 16 92 95 08/29/19 07:15 126/75 96 08/29/19 04:03 117/79 96 08/28/19 23:09 119/77 96 Pulse Ox 08/29/19 09:00 97 08/29/19 07:15 08/29/19 04:03 08/28/19 23:09 Laboratory Results Laboratory Results - last 24 hr 08/28/19 08/28/19 08/28/19 03:18 11:37 16:03 Sodium Potassium Chloride Carbon Dioxide Anion Gap BUN Creatinine Est Cr Clr Drug Dosing Est GFR ( Amer) Est GFR (Non-Af Amer) BUN/Creatinine Ratio Glucose POC Glucose 265 H 153 H Estimat Average Glucose 160 Hemoglobin A1c 7.2 H Calcium 08/28/19 08/29/19 08/29/19 19:59 05:40 07:25 Sodium 138 Potassium 4.1 D Chloride 101 Carbon Dioxide 32 Anion Gap 5.0 BUN 22 H Creatinine 1.09 Est Cr Clr Drug Dosing 67.6 Est GFR ( Amer) 62.1 Est GFR (Non-Af Amer) 53.6 BUN/Creatinine Ratio 20.6 H Glucose 97 POC Glucose 75 91 Estimat Average Glucose Hemoglobin A1c Calcium 9.5
[2019-08-29] MEDS: CARBOHYDRATES FOR HYPOGLYCEMIA PO PRN ×2 (16:21→16:48)
--- NOTE | 2019-08-29 16:39 | Hospitalist Progress Note ---
Date of Service August 29, 2019 Assessment & Plan (1) Acute decompensated heart failure: Exam admission chest x-ray consistent with decompensated CHF. Echocardiogram showed left ventricular hypertrophy, preserved left ventricular systolic function, aortic stenosis as discussed below. Acute on chronic left ventricular diastolic heart failure with associated aortic stenosis. Improved with IV furosemide. Discharge on furosemide 40 mg q a.m. + PRN afternoon dose. CHF instructions given. (2) CAD in [place] artery: Experiencing some chest pressure and dyspnea on exertion. Decompensated CHF as noted above. Acute [place] ruled out. May or may not have unstable angina. Worsening could be contributing factor. Symptoms improved with treatment for CHF. Continue aspirin, metoprolol, amlodipine, nitrates, statin. May need stress testing or follow-up catheterization. Will defer to vice president research in her own community. (3) Aortic stenosis: Echocardiogram demonstrated moderate to severe aortic stenosis, severe LVH, preserved LVEF. Worsening dyspnea on exertion may be due to CHF, myocardial ischemia, and/or worsening aortic stenosis. Has had episodes of near-syncope which may or may not be related. Will need close follow-up with her vice president research in [place]. (4) Near syncope: Episodes of near syncope. Currently in atrial flutter with controlled rate. Aortic stenosis as noted above. Will need to be followed closely. Consider outpatient cardiac event monitor. Advised to avoid driving and strenuous activity until otherwise advised by her providers in [place]. (5) Atrial flutter: Patient indicates history of paroxysmal atrial fibrillation. Rhythm at this time is atrial flutter with controlled rate. Continue metoprolol and rivaroxaban. (6) Hypertension: Continue metoprolol, amlodipine, nitrates (7) Diabetes mellitus type 2 with complications: Managed with insulin pump. Pharmacy consulted to assist with glycemic management. (8) DVT prophylaxis: On rivaroxaban for atrial fibrillation / flutter. (9) Discharge planning issues: Anticipated return to her home in [place]. Follow-up with her providers there [facility]. Primary Care Provider: Jhoan Samuel MD [address] [place] [address] [place] [id number] Samuel to provide update. Message left for him to call back. Records will be faxed to his office. Patient will be given copies of echo, x-rays, and other records. Subjective Recheck for multiple problems. Patient seen in their room around 1300. Feels much better. Ambulating. No chest pain, dyspnea, lightheadedness. Maintained O2 sats on RA while ambulating. Review of Systems: Constitutional- no fever. Cardiac- as noted above. Pulmonary- no cough or SOB. GI- no nausea, vomiting, diarrhea, melena, hematochezia. - no urinary symptoms. Otherwise, as noted above. Physical Exam Constitutional: no acute distress Respiratory: no respiratory distress Auscultation: lungs clear to auscultation bilaterally Cardiovascular: Rate/Rhythm: regular rate and regular rhythm Heart Sounds: + murmur (IV/ sys murmur at base); no gallop and no cardiac rub Vessels: no JVD Extremities: + edema (1+ pretibial); no calf tenderness Gastrointestinal (Abdomen): normal bowel sounds, soft, nontender, no hepatosplenomegaly Skin: no rashes, warm and dry Psychiatric: Orientation: alert and oriented x 3 Results & Data Vital Signs (Past 12 Hours) Vital Signs Temp Pulse Pulse Pulse Pulse Resp Resp 08/29/19 14:58 36.7 C 68 18 08/29/19 11:53 36.8 C 67 19 08/29/19 11:50 36.8 C 67 19 08/29/19 09:00 104 H 104 H 83 20 08/29/19 07:15 36.4 C L 74 19 Resp Resp BP BP Pulse Ox Pulse Ox Pulse Ox 08/29/19 14:58 132/60 94 08/29/19 11:53 117/79 119/74 97 08/29/19 11:50 119/74 97 08/29/19 09:00 16 16 92 95 08/29/19 07:15 126/75 96 Pulse Ox 08/29/19 14:58 08/29/19 11:53 08/29/19 11:50 08/29/19 09:00 97 08/29/19 07:15 Laboratory Results Laboratory Results - last 24 hr 08/28/19 08/28/19 08/29/19 03:18 19:59 05:40 Sodium 138 Potassium 4.1 D Chloride 101 Carbon Dioxide 32 Anion Gap 5.0 BUN 22 H Creatinine 1.09 Est Cr Clr Drug Dosing 67.6 Est GFR ( Amer) 62.1 Est GFR (Non-Af Amer) 53.6 BUN/Creatinine Ratio 20.6 H Glucose 97 POC Glucose 75 Estimat Average Glucose 160 Hemoglobin A1c 7.2 H Calcium 9.5 08/29/19 08/29/19 08/29/19 07:25 11:22 16:18 Sodium Potassium Chloride Carbon Dioxide Anion Gap BUN Creatinine Est Cr Clr Drug Dosing Est GFR ( Amer) Est GFR (Non-Af Amer) BUN/Creatinine Ratio Glucose POC Glucose 91 204 H 50 L* Estimat Average Glucose Hemoglobin A1c Calcium
--- NOTE | 2019-08-29 16:47 | Discharge Summary ---
Date of Service Date of Admission: 08/27/19 Date of Discharge: 08/29/19 Admission HPI Per Admitting Provider A 64-year-old female with past medical history significant for diabetes, hypertension, hyperlipidemia, CAD status post stent and status post CABG in 2003, last stents were around 2003, history of sleep apnea, history of atrial flutter, on Xarelto, depression, who visits [place] from [place]. She is on vacation. Last week, she went to [place] for 4 days and she and her sister drove to [place] to go to [facility], but since last Thursday, she is getting more short of breath on exertion and dizziness, but last 2 days it got worse.She gets lower extremity swelling on and off, but last week the swelling got a little worse. There is also issue of not eating her lunch and just had a candy and had her insulin , question of any hypoglycemic episode. She is on insulin pump. In the ER, her initial workup was okay, but on exertion again her oxygen dropped into the 80s, so we are called for admission. Currently, resting comfortable and hemodynamically stable. The patient says whenever she is walking she gets short of breath and she takes rest, then she develops some chest discomfort, pressure-like feeling, moderate to severe in nature, no radiation, it lasts for about 10-15 minutes and it subsides. That got her worried and that is what brought her to the hospital. She also has heart murmur. Denies any fever, chills. Denies cough. Has some headaches, has some blurred visions on and off, has some ringing in the ears for last about 1 year, she is following with the doctors for that. Denies any sore throat. Appetite is good. No difficulty swallowing. During the episode, she had 1 episode of nausea. No vomiting, no abdominal pain. She was constipated the week before, but she is okay now. No melena or hematochezia. Normal bladder movements. She had burning micturition in the recent past, but that got resolved now. No hematuria. She is scratching in her back and she has some scratch lesions in the back. Before all this started, she used to ambulate fine. She lives alone. Admission Exam Per Admitting Provider GENERAL: The patient is obese, not in acute distress. VITAL SIGNS: Temperature 36.4, pulse 70, respiratory rate 15, blood pressure 153/98, oxygen 96% on room air. HEENT: No pallor, no icterus. Pupils equal, round, reactive to light. NECK: No JVD, no neck masses, no carotid bruits. CARDIOVASCULAR: S1, S2 heard, regular rhythm and ejection systolic murmur heard best in the aortic area. RESPIRATORY SYSTEM: Clear to auscultation. Normal AP diameter. No accessory muscle use. Clear to auscultation bilaterally. No wheezing, no crackles. ABDOMEN: Soft, bowel sounds present, nontender. No distention. CENTRAL NERVOUS SYSTEM: Alert and awake and oriented. Nonfocal. EXTREMITIES: Bilateral lower extremity +2 edema present. SKIN: Scratches, lesions seen on the back. Principal Diagnosis acute on chronic left ventricular diastolic heart failure coronary artery disease aortic stenosis, moderate-severe atrial flutter hypertension diabetes mellitus type 2, with complications, on insulin pump Discharge Data Allergies Allergy/AdvReac Type Severity Reaction Status Date / Time Sulfa (Sulfonamide Allergy Unknown Unverified 08/27/19 18:25 Antibiotics) Consultations 08/27/19 18:54 ED Decision to Admit Stat 08/28/19 08:00 Consult Cardiology Routine 08/29/19 12:35 Burn CD for patient Routine Ordered Studies 08/27/19 20:45 US venous doppler [facility] Urgent Hospital Course (1) Acute decompensated heart failure: Exam and admission chest x-ray consistent with decompensated CHF. Echocardiogram showed left ventricular hypertrophy, preserved left ventricular systolic function, aortic stenosis as discussed below. Acute on chronic left ventricular diastolic heart failure with associated aortic stenosis. Improved with IV furosemide. Chest x-ray morning of discharge showed worsening pulmonary vascular congestion. Patient achieved good diuresis with IV diuretics; symptoms and exam improved. Ambulating on RA without difficulty and maintaining O2 sats > 90%. Appearance of chest x-ray seemed to be lagging behind clinical improvement. Stable for discharge. Discharged on furosemide 40 mg q a.m. + PRN afternoon dose. CHF instructions given. (2) CAD in [place] artery: Experiencing some chest pressure and dyspnea on exertion. Decompensated CHF as noted above. Acute [place] ruled out. May or may not have unstable angina. Worsening could be contributing factor. Symptoms improved with treatment of CHF. Continue aspirin, metoprolol, amlodipine, nitrates, statin. May need stress testing or follow-up catheterization. Will defer further management to drop wirer in her own community. (3) Aortic stenosis: Echocardiogram demonstrated moderate to severe aortic stenosis, severe LVH, preserved LVEF. Worsening dyspnea on exertion may be due to CHF, myocardial ischemia, and/or worsening aortic stenosis. Has had episodes of near-syncope which may or may not be related. Will need close follow-up with her drop wirer in [place]. (4) Near syncope: Episodes of near syncope. Currently in atrial flutter with controlled rate. Aortic stenosis as noted above. Will need to be followed closely. Consider outpatient cardiac event monitor. Advised to avoid driving and strenuous activity until otherwise advised by her providers in [place]. (5) Atrial flutter: Patient indicates history of paroxysmal atrial fibrillation. Rhythm at this time is atrial flutter with controlled rate. Continue metoprolol and rivaroxaban. (6) Hypertension: Continue metoprolol, amlodipine, nitrates (7) Diabetes mellitus type 2 with complications: Managed with insulin pump. Pharmacy consulted to assist with glycemic management. (8) DVT prophylaxis: On rivaroxaban for atrial fibrillation / flutter. (9) Discharge planning issues: Anticipated return to her home in [place]. Follow-up with her providers there [facility]. Primary Care Provider: Jhoan Samuel MD [address] [facility] [place] [place] [id number] Samuel to provide update. Message left for him to call back. Records will be faxed to his office. Patient will be given copies of echo, x-rays, and other records. (10) Sleep apnea: Total Time Total Time Spent Total Time Spent (In Minutes): 50 Discharge Plan Discharge Items Patient Disposition: Home - Self-Care Reason For Visit: trouble breathing, chest pressure, weakness Discharge Diagnosis: congestive heart failure aortic stenosis coronary artery disease atrial flutter Condition on Discharge: Good Activity: As commented below Activity Comment: No strenuous activity until your doctors say OK. Driving/Machine Use: No driving until your doctors say OK. Non-emergency contact: Primary Care Provider, Hospitalist and [employer] [employer] Call non-emergency contact if: you have any medication questions and your symptoms worsen Follow-up/Referrals: PCP,NO [Primary Care Provider] - Diet: Carb Consistent or DM2 and Heart Healthy Addtl Attending Provider Instructions: MEDICATION CHANGES: Take extra dose of furosemide (Lasix) in the afternoon if you gain more than 2 lbs in 48 hour period, or 5 lbs in 1 week. SUMMARY OF TEST RESULTS: Chest x-ray showed congestive heart failure (enlarged heart and fluid in lungs). Electrocardiogram showed atrial flutter. Echocardiogram showed aortic stenosis (narrowing of aortic valve) and thickened heart muscle. RECOMMENDATIONS FOR FOLLOW-UP: Please see Dr. Samuel as soon as possible. Ask him to check blood work (basic metabolic profile). Please ask Dr. Samuel for referral to see a drop wirer as soon as possible. Call 911 and go to the Emergency Room if: * You have tightness or pain in your chest that does not go away with rest or Nitroglycerin * You are very short of breath even with rest Call your doctor if any of the following symptoms or problems start or get worse: * Shortness of breath or difficulty breathing * Wake up at night short of breath * Chest pain * Cough * Swelling of your hands, fee, or legs * More fatigued or tired with your normal activity * Palpitations - sudden fast heart beats WEIGHT * Weigh yourself every morning after using the bathroom. * Use the same scale. * Wear the same amount of clothing. * Write your weight down on your chart. * Call your doctor if you gain more than 2-3 pounds in 1-2 days. MEDICATIONS * Use this discharge instruction sheet for instructions. * Take your medications at the time your doctor ordered. * Do not skip a dose of your medicines. * If you miss a dose of medicine, take as soon as possible, but DO NOT DOUBLE A DOSE. * Read your medicine information when you get home. * Know all of the side effects of your medicine. * Call your doctor's office if you have any side effects. * Be sure all of your doctors know what medicine and herbs you take (including cold, flu, and herbal medicine). * Pain Medicine: If you do not get relief from your pain, please call your doctor for help. Take the following with you to your follow-up doctor appointments: * Weight Chart * Medication List * List of questions Do not drink excessive alcohol, beer or wine. OTHER INSTRUCTIONS: Seek medical attention if you have: * temperature above 101 * chest pain or trouble breathing * abdominal pain, nausea, vomiting * diarrhea, dark stools or bloody stools * any unanswered questions or concerns Call 911 if symptoms are severe. Please take good care of yourself. Call if you have any questions or problems. You can reach a [facility] hospitalist on duty at [facility] 24 hours a day by calling [phone]. My cell # is [phone]. Pending Studies at Discharge: No Stand-Alone Forms: My [facility], Smoking Cessation Medications and DC Order Prescriptions: Continued pantoprazole 40 mg tablet,delayed release (DR/EC) 40 mg PO DAILY RF: 0 Xarelto 20 mg tablet 20 mg PO DAILY RF: 0 duloxetine 60 mg capsule,delayed release(DR/EC) 60 mg PO DAILY RF: 0 isosorbide mononitrate 30 mg tablet extended release 24 hr 30 mg PO QAM RF: 0 amlodipine 5 mg tablet 5 mg PO DAILY RF: 0 metoprolol succinate 50 mg tablet extended release 24 hr 75 mg PO DAILY RF: 0 furosemide 40 mg tablet 40 mg PO DAILY RF: 0 rosuvastatin 40 mg tablet 40 mg PO DAILY RF: 0 aspirin [Aspir-81] 81 mg Tablet,Delayed Release (Dr/Ec) 81 mg PO DAILY RF: 0 cholecalciferol (vitamin D3) 2,000 unit Tablet 2,000 unit PO DAILY RF: 0 potassium chloride [Klor-Con M10] 10 mEq tablet,ER particles/crystals 10 meq PO DAILY RF: 0 calcium carbonate [Calcium 600] 600 mg calcium (1,500 mg) Tablet 600 mg PO DAILY RF: 0 irbesartan 300 mg tablet 300 mg PO DAILY RF: 0 vitamin [id number] acid 1,500 mcg PO DAILY RF: 0 Novolog U-100 Insulin aspart 100 unit/mL solution continuous subcutaneous infusion CONT RF: 0 Discharge Orders: Discharge Order (Routine); Ordered 08/29/19 Ordered By: Cresencio Javed Admission Data Admit Date/Time: 08/27/19 19:50 Attending Provider: Cresencio Javed Admit Provider: Tommy Almonte Primary Care Provider: PCP,NO Other Providers: Tommy Almonte ; Chris Guillen Other Interventions: Discharge Summary Assessment (RN) Last Done: 08/29/19 17:02 DC Date/Time DO NOT enter until pt leaves facility: 08/29/19 17:59
--- NOTE | 2019-09-12 10:02 | Coding Query ---
CODING QUERY Dr. Javed DOS: 08-29-19 To promote full compliance with coding requirements relating to patient care, provider participation is requested in all cases of director airport operations uncertainty. Please assist us with the question(s) below: Coding Question(s): Due to discrepancy in dictation please clarify if patient has Type I or Type II diabetes. Discharge summary stated Type II diabetes. There was mention in the H&P of Type I diabetes. Please clarify. Thank you. Physician's Response(s): Not 100% certain- patient from out of town and no background info. Believe that diabetes mellitus type 2 on insulin therapy with complications is most likely appropriate diagnosis. Thank you Michelle Robertson Principal Diagnosis: "that condition established after study, to be chiefly responsible for occasioning the admission of the patient to the hospital for care." Co-Existing Principal Diagnosis: "when two or more diagnoses equally meet the criteria for principal diagnosis as determined by the circumstances of admission, diagnostic work up, and/or therapy provided, and the Alphabetic Index, Tabular List, or another coding guideline does not provide sequencing direction, any one of the diagnoses may be sequenced first." "When the physician has documented what appears to be a current diagnosis in the body of the record, but has not included the diagnosis in the final diagnostic statement, the physician should be asked whether the diagnosis should be added." (Source Coding [facility] 2 QTR90. p3-4) RADHA
== END 2019-08-29 17:59 | disposition home or self-care (01) ==
LOC: ED 15:58 → 2S 15:58